=== PATIENT | female | born 1945 | race Caucasian/White ===

== ENCOUNTER → 2016-06-16 | Outpatient (CLI) | payer MEDICARE ==
--- NOTE | 2016-06-17 10:43 | MM ---
Reason for exam: screening (asymptomatic). Last mammogram was performed 6 years ago. History: Patient is postmenopausal. Physical Findings: A clinical breast exam by your physician is recommended on an annual basis and results should be correlated with mammographic findings. MG 3D Screening Mammo W/Cad Bilateral CC and MLO view(s) were taken. Prior study comparison: June 12, 2010, bilateral digital screening mammo w/CAD. July 22, 2007, bilateral mammogram, performed at [facility]. There are scattered fibroglandular densities. No significant changes when compared with prior studies. ASSESSMENT: Negative, BI-RAD 1 RECOMMENDATION: Routine screening mammogram of both breasts in 1 year.
== END ==
LOC: RADMAMWWP 13:40
PROVIDERS: ATTEND Internal Medicine
DX: Z12.31 Encounter for screening mammogram for malignant neoplasm of breast (principal)
CPT/HCPCS: 77063; G0202

== ENCOUNTER → 2016-12-11 | Outpatient (CLI) | payer MEDICARE ==
--- NOTE | 2016-12-11 11:31 | FL ---
EXAMINATION TYPE: FL UGI w esophagus DATE OF EXAM: 12/11/2016 COMPARISON: NONE HISTORY: K44.9 HERNIA WITHOUT OBSTRUCTION OR GANGRENE TECHNIQUE: A double contrast UGI study is performed. FINDINGS: Housing Specialist image of the abdomen shows no gross abnormality. There is a moderate sliding-type hiatal hernia noted which is fixed. There is moderate gastroesophage al reflux noted to the thoracic inlet. I do not see evidence for esophagitis at this time. The stomach shows normal distensibility, peristalsis, and mucosal folds. No evidence of any mass or ulcer disease. No significant gastroesophageal reflux was seen during real time performance of this study. The duodenal bulb, sweep, and proximal small bowel loops are free of ulcer crater. Small duodenal div erticulum noted of its second portion. IMPRESSION: 1. Moderate fixed hiatal hernia with gastroesophageal reflux.
== END | disposition home or self-care (01) ==
LOC: RADFLWHC 10:05
PROVIDERS: ATTEND Internal Medicine
DX: K21.9 Gastro-esophageal reflux disease without esophagitis (principal); K44.9 Diaphragmatic hernia without obstruction or gangrene
CPT/HCPCS: 74240

== ENCOUNTER → 2018-03-29 | Outpatient (CLI) | payer MEDICARE ==
--- NOTE | 2018-03-29 16:34 | MR ---
EXAMINATION TYPE: MR knee RT wo con DATE OF EXAM: 03/29/2018 COMPARISON: None HISTORY: Right knee pain TECHNIQUE: Multiplanar, multisequence imaging of the right knee is performed without IV contrast. FINDINGS: MEDIAL MENISCUS: Medial meniscus is small. Residual meniscus appears intact. LATERAL MENISCUS: There is near complete loss of the lateral meniscus. CRUCIATE LIGAMENTS: Posterior cruciate ligament is intact. The visualized fibers of the anterior cruc iate ligament appear intact and follow a normal course. The insertion on the femur is somewhat more d ifficult to visualize. Prior partial tear is likely present. Complete tears not identified. Correlate with the clinical findings. COLLATERAL LIGAMENTS: Medial and lateral collateral ligaments appear intact EXTENSOR MECHANISM: Visualized quadriceps and patellar tendons are intact. EFFUSION: There is a moderate joint effusion present. POPLITEAL CYST: There is a 1.8 x 1.7 x 3.9 cm popliteal cyst. TRICOMPARTMENT SPACES: There is narrowing of medial lateral compartment joint spaces. There is preser vation of the patellofemoral joint space. CARTILAGE: There is loss of the articular cartilage from the lateral compartment joint space. There i s thinning of the medial compartment joint space articular cartilage. BONE MARROW SIGNAL: Subchondral cyst formation as well as edema is present along the lateral tibial p lateau. Some changes are also noted within the posterior lateral femoral condyle. OTHER: None IMPRESSION: 1. Advanced degenerative joint changes no greatest within the lateral compartment joint space. Severe joint changes are also present within the medial compartment joint space. 2. Thinning of the articular cartilage with subchondral cyst formation especially noted through the l ateral tibial plateau. 3. Loss of the medial lateral menisci little residual remaining. 4. Popliteal cyst.
== END | disposition home or self-care (01) ==
LOC: RADMRIMAIN 08:12
PROVIDERS: ATTEND Internal Medicine
DX: M17.11 Unilateral primary osteoarthritis, right knee (principal); M71.21 Synovial cyst of popliteal space [Baker], right knee; M85.661 Other cyst of bone, right lower leg; M23.300 Other meniscus derangements, unspecified lateral meniscus, right knee; M23.303 Other meniscus derangements, unspecified medial meniscus, right knee

== ENCOUNTER → 2019-01-31 | Outpatient (CLI) | payer MEDICARE ==
[2019-01-31 08:56] VITALS: BP 136/85; PULSE 88; RESP 18; TEMP 97.9
--- NOTE | 2019-01-31 09:57 | P.HPOB ---
History of Present Illness H&P Date: 01/31/19 Chief Complaint: The patient is here for her routine gynecologic exam and ma mmogram. This is a 73-year-old with an LMP of 1997. The patient is here to establish with this office. It has been more than 10 years since her last pelvic exam. She is complaining of some vulvar itching and irritation which has gone on for about 1 year. She states it feels dry. She is not sexually active. She denies vaginal discharge or odor. There is a rough area in the left vulva and she thinks this is where the irritation started. Review of Systems She has lost about 10 pounds over the past year with increased activity. She denies respiratory, cardiac and G.I. problems. She denies maltreatment or problems with falling. : she denies any significant problems with urinary leakage. Past Medical History Past Medical History: GERD/Reflux Additional Past Medical History / Comment(s): hiatal hernia.past RESIDENT CARE MANAGER RN history: She was told she had genital warts years ago. History of Any Multi-Drug Resistant Organisms: None Reported Past Surgical History: Cholecystectomy, Hysterectomy, Orthopedic Surgery Additional Past Surgical History / Comment(s): Vaginal hysterectomy with BSO in 1997. arthroscopic rt knee. Colonoscopy 2019(3rd,next after 5yrs) Past Anesthesia/Blood Transfusion Reactions: No Reported Reaction Past Psychological History: Depression Smoking Status: Former smoker Past Alcohol Use History: Rare Additional Past Alcohol Use History / Comment(s): Quit smoking at approximately age 48. She also quit drinking alcohol at age 48. Past Drug Use History: None Reported Additional History: She is and is not seeing anybody at this time and is not sexually active. She is self-employed as a landlord. - Past Family History Mother Family Medical History: Hypertension Additional Family Medical History / Comment(s): Maternal grandmother and maternal aunt had some type of cancer. Maternal uncle had throat cancer. Daughter(s) Family Medical History: Hypertension, Pulmonary Embolus Brother(s) Family Medical History: Hypertension Medications and Allergies Home Medications Medication Instructions Recorded Confirmed Type Cholecalciferol (Vitamin D3) 2,000 unit PO DAILY 01/31/19 01/31/19 History [Vitamin D3] DULoxetine HCL [Cymbalta] 30 mg PO BID 01/31/19 01/31/19 History Hydrocodone/Acetaminophen [[place] 1 tab PO Q4-6H PRN 01/31/19 01/31/19 History 5-325] Magnesium 200 mg PO DAILY 01/31/19 01/31/19 History Pantoprazole [Protonix] 1 tab PO DAILY 01/31/19 01/31/19 History Phytonadione [Vitamin K] 5 mg PO DAILY 01/31/19 01/31/19 History Potassium 99 mg PO DAILY 01/31/19 01/31/19 History Allergies Allergy/AdvReac Type Severity Reaction Status Date / Time No Known Allergies Allergy Verified 01/31/19 08:56 Exam Vital Signs Temp Pulse Resp BP Pulse Ox 01/31/19 08:50 97.9 F 88 18 136/85 96 Intake and Output 01/30/19 01/31/19 01/31/19 22:59 06:59 14:59 Other: Weight 100.244 kg Height 5 feet 8 inches, weight 221 pounds, BMI 33.6. This is a well-developed well-nourished white female who is alert and oriented times 3 in no acute distress. HEENT: Within normal limits. NECK: Supple without mass or thyromegaly. CHEST AND LUNGS: Clear to auscultation. HEART: Regular rate and rhythm. BREASTS: Are without mass or discharge. AXILLARY EXAM: Negative for adenopathy. BACK: Negative for CVA tenderness. ABDOMEN: Soft, nontender, without palpable masses. PELVIC EXAM: External genitalia reveals moderate atrophy with pallor from approximately the 10:00 to 2 o'clock position of the introitus including the periclitoral area. There is also pallor in the posterior introitus extending to the perineum. There is mild perianal erythema Vagina appears normal with mild to moderate atrophy. There is no evidence of prolapse. Bimanual examination is negative for mass or tenderness. RECTAL EXAM: Rectovaginal exam is negative for mass or tenderness and is negative for occult blood. EXTREMITIES: Nontender. IMPRESSION: 1. 73-year-old menopausal female who is status post vaginal hysterectomy with with BSO done for benign reasons. 2. One year history of vulvar pruritus and irritation with vulvar pallor most consistent with lichen sclerosis. Differential diagnosis will also include chronic hypertrophic vulvitis, vulvar intraepithelial neoplasia, and vulvar malignancy. PLAN: 1. Pap smears have been discontinued. 2. Self breast awareness was discussed with the patient. 3. Screening mammogram will be done today. 4. The patient will be scheduled for vulvar biopsy. 5. She does get flu shots in the fall and did receive one this year. 6.Osteoporosis prevention was discussed. I have stressed the importance of adequate calcium, vitamin D and regular exercise. Recommended amounts of calcium and vitamin D were also discussed. She states she had a bone density test done through Dr. Funk earlier this year and states it came back okay. 7. The patient was advised to return in 1-2 years for her well woman examination.
--- NOTE | 2019-02-01 13:25 | MM ---
Reason for exam: screening (asymptomatic). Last mammogram was performed 2 years and 7 months ago. History: Patient is postmenopausal. Physical Findings: A clinical breast exam by your physician is recommended on an annual basis and results should be correlated with mammographic findings. MG 3D Screening Mammo W/Cad Bilateral CC and MLO view(s) were taken. Prior study comparison: June 16, 2016, bilateral MG 3d screening mammo w/cad. June 12, 2010, bilateral digital screening mammo w/CAD. There are scattered fibroglandular densities. No significant changes when compared with prior studies. ASSESSMENT: Benign, BI-RAD 2 RECOMMENDATION: Routine screening mammogram of both breasts in 1 year.
== END ==
LOC: WWCWWP 08:28
PROVIDERS: ATTEND Obstetrics & Gynecology
DX: Z12.31 Encounter for screening mammogram for malignant neoplasm of breast (principal)
CPT/HCPCS: 77063; 77067

== ENCOUNTER → 2019-02-08 | Day surgery (SDC) | payer MEDICARE ==
[2019-02-08 12:11] VITALS: BP 156/77; PULSE 82; RESP 18; TEMP 97.6
--- NOTE | 2019-02-08 13:27 | P.PCN ---
Date of Procedure: 02/08/19 Preoperative Diagnosis: Chronic vulvar pruritus and vulvar pallor Postoperative Diagnosis: Same with greatest concern at the periclitoral and perineal areas. Procedure(s) Performed: Periclitoral and perineal biopsies. Anesthesia: local Surgeon: Roberto Garcia Estimated Blood Loss (ml): 1 Pathology: other (Periclitoral and perineal biopsies) Condition: stable Disposition: same day Indications for Procedure: This was a 73-year-old menopausal female with a one-year history of vulvar pruritus and irritation. Periclitoral and perineal pallor is noted on exam. Operative Findings: There is moderate genital atrophy noted. There is also mild generalized in flammation of the labia majora bilaterally. The periclitoral area including the clitoral cornejo has moderate pallor and some excoriation consistent with scratch skin. There is minimal pallor in the labia majora. There is moderate pallor in the area of the perineum. The perineal skin is slightly raised. Upon examination the patient was asked to point out the most bothersome area to her and she indicates the perineal area and the area just to the left of it is the most bothersome. She states she has little symptoms and the periclitoral area. Description of Procedure: The procedure including possible risks and complications were reviewed with the patient. All questions were answered. The patient was placed in the lithotomy position and the areas were prepped with Betadine solution. 1% lidocaine was used for local anesthesia. Approximately 1 mL was used in each of the 2 areas. Following determination of adequate anesthesia, a 3 mm punch biopsy was used to biopsy the periclitoral area just to the left of the clitoris. The biopsy specimen was sent for pathological examination as specimen A. A silver nitrate stick was used to obtain hemostasis. The perineal skin which had to moderate pallor was then biopsied after adequate anesthesia was determined. This was biopsied with a cervical biopsy instrument. This was also sent for pathological examination as specimen B. A silver nitrate stick was used to obtain hemostasis. Antibiotic ointment was applied to both biopsy sites. The patient tolerated the procedure well. The estimated blood loss was 1 mL. The post procedure blood pressure was 158/94 with a pulse of 83. The patient was instructed to have limited activity including no running or sexual activity. The patient is to apply Neosporin twice daily to each area until the biopsy sites are healed. The patient was instructed to call if she has unusual pain, problems with bleeding, fever or any other problems.
--- NOTE | 2019-02-14 16:56 | P.PN ---
Progress Note - Text Progress Note Date: 02/14/19 OUTPATIENT FOLLOW-UP NOTE TEST(S)/RESULTS: Vulvar biopsy results from 02/08/2019 came back showing lichen sclerosis from the periclitoral and perineal biopsies. METHOD OF NOTIFICATION: The patient was notified by phone. PATIENT COMMENTS: The patient states she has not had any problems from the biopsy site. DIAGNOSIS: Lichen sclerosis of the vulva most prominent in the periclitoral and perineal areas. DISCUSSION: We had a long discussion regarding the nature of lichen sclerosus and the treatment. She will be prescribed clobetasol 0.05% ointment, 30 g tube, which she will apply a thin layer to the affected areas daily at bedtime 4 weeks, at at bedtime every other day 4 weeks, then 2 times weekly for 4 weeks. On days when she is not applying the prescription ointment, she was advised to use a thin layer of petroleum jelly as a protective barrier layer. She was also advised to use minimal soap to the area. She will start the prescription medication after the biopsy sites have fully healed. She will call if problems. PLAN: As above. The prescription will be sent electronically to [facility] pharmacy on [address]. She will make an appointment in 3 months for reevaluation. A p atient handout on the lichen sclerosus will be mailed to the patient.
== END ==
LOC: WWCWWP 11:57
PROVIDERS: ATTEND Obstetrics & Gynecology
DX: L29.2 Pruritus vulvae (principal)
CPT/HCPCS: 88305

== ENCOUNTER → 2019-12-01 | Outpatient (CLI) | payer MEDICARE ==
--- NOTE | 2019-12-01 16:01 | CT ---
EXAMINATION TYPE: CT chest w con DATE OF EXAM: 12/01/2019 COMPARISON: None HISTORY: Abnormal findings lung field. Nodules per patient. Also shortness of breath with exertion x [address] DLP: 559 mGycm Automated exposure control for dose reduction was used. CONTRAST: CT scan of the chest is performed with IV Contrast, patient injected with 80 mL of Isovue M300. FINDINGS: LUNGS: There are scattered 3 to 4 mm soft tissue nodules present within the bilateral lungs, axial im age 33 in the right upper lobe, axial image 39 medially in the right middle lobe is along the fissure , left upper lobe axial image 12. There is no pleural effusion or pneumothorax seen. The tracheobron chial tree is patent. Bandlike areas of increased attenuation at the lung bases likely reflect scarri ng or atelectasis. MEDIASTINUM: There are no greater than 1 cm hilar or mediastinal lymph nodes. No pericardial effusi on is seen. There are coronary calcifications present. Prominence of pulmonary artery could be indic ative of pulmonary artery hypertension. AORTA: No additional significant abnormality is seen. OTHER: Hiatal hernia with partial intrathoracic stomach is noted. Patient is post cholecystectom. IMPRESSION: Probably benign lung nodules, follow-up could be performed to assess for stability in 6- 12 months. Coronary artery disease. Correlate for pulmonary artery hypertension. Hiatal hernia.
== END | disposition home or self-care (01) ==
LOC: RADCTMAIN 13:23
PROVIDERS: ATTEND Internal Medicine
DX: R91.8 Other nonspecific abnormal finding of lung field (principal); K44.9 Diaphragmatic hernia without obstruction or gangrene
CPT/HCPCS: 82565; 84520; 71260; 36415; Q9967

== ENCOUNTER 2020-03-18 06:44 | Day surgery (SDC) | payer MEDICARE ==
[2020-03-12 13:24] VITALS: BMI 35.9
[~2020-03-18 06:44] MED LIST: ALPRAZolam 0.25 MG TAB PO PRN; ALPRAZolam 0.5 MG TAB PO PRN; ASPIRIN 325 MG TAB PO STA; ATORVASTATIN 80 MG TAB PO STA; HEPARIN SODIUM,PORCINE 10,000 UNIT in SODIUM CHLORIDE 0.9% 1,000 ML IRRIGATION PRN; HEPARIN SODIUM,PORCINE 2,500 UNIT in SODIUM CHLORIDE 0.9% 250 ML IRRIGATION PRN; NITROGLYCERIN SL TABS 0.4 MG TAB SUBLINGUAL PRN; SODIUM CHLORIDE 0.9% 1,000 ML in EMPTY BAG 1 BAG IV ONE
[2020-03-18] MEDS ORDERED: SODIUM CHLORIDE 0.9% 1,000 ML IV SCH ×2 (07:00→09:00)
[2020-03-18] MEDS ORDERED: SODIUM CHLORIDE 0.9% 1,000 ML IV ONE (07:02)
[2020-03-18 07:16] VITALS: RESP 16; TEMP 98.8
[2020-03-18] MEDS ORDERED: LIDOCAINE 1% INJ 10MG/ML (20 ML MDV) ONE (08:20)
[2020-03-18] MEDS ORDERED: VERAPAMIL 2.5 MG/ML 2 ML AMP ONE (08:20)
[2020-03-18] MEDS ORDERED: fentaNYL (PF) 50 MCG/ML 2 ML AMP ONE (08:27)
[2020-03-18] MEDS ORDERED: HEPARIN SODIUM 1,000 UN/ML (10ML VL) ONE (08:36)
[2020-03-18] MEDS ORDERED: MIDAZOLAM 2 MG/2 ML VIAL IVP ONE (08:37)
[2020-03-18] MEDS ORDERED: fentaNYL (PF) 50 MCG/ML 2 ML AMP IVP ONE (08:37)
[2020-03-18] MEDS ORDERED: LIDOCAINE 1% INJ 10MG/ML (20 ML MDV) SQ ONE (08:38)
[2020-03-18] MEDS ORDERED: HEPARIN SODIUM 1,000 UN/ML (10ML VL) IV ONE ×2 (08:42)
[2020-03-18] MEDS: VERAPAMIL SYRINGE (5 MG/10 ML) INTRAARTER ONE ×2 (08:42→08:51)
[2020-03-18] MEDS ORDERED: IOPAMIDOL-370 125ML BTL INJ ONE (08:50)
[2020-03-18] MEDS ORDERED: RX INFO: IV CONTRAST WAS GIVEN 1 EACH MISC MISCELLANE PRN (08:55)
--- NOTE | 2020-03-18 10:19 | CC ---
CARDIAC CATHETERIZATION REPORT DATE OF SERVICE: March 18, 2020. PERFORMING PHYSICIAN: Antonio Lockett MD. PROCEDURE PERFORMED: 1. Selective right and left coronary angiogram. 2. Left heart catheterization. INDICATION: This is a 74-year-old female patient with hypertension and dyslipidemia who was experiencing symptoms of chest discomfort and underwent stress test as well as CT calcium score and both came in to be abnormal. Because of that, a heart catheterization was advised. APPROACH: Right radial artery. COMPLICATION: None. LEVEL OF SEDATION: Moderate with sedation length of 15 minutes. PROCEDURE DESCRIPTION: After obtaining an informed consent, the patient was brought to cardiac biological lab technician. The right radial artery was cannulated using micropuncture technique and a micropuncture wire passed easily then I placed a 5-[place] sheath. I gave the patient 2 mg of verapamil IA and 8000 units of heparin IV. Selective right and left coronary angiogram performed with JR4 and JL3.5 catheters. Left heart catheterization was performed using 5-[place] pigtail catheter. The procedure was completed without any complication. SELECTIVE CORONARY ANGIOGRAM: 1. The RCA is a large caliber vessel and it is a dominant vessel. The RCA has mild disease only and appeared to be calcified. 2. The left main has mild disease only. It bifurcates into LCX and LAD. 3. The LCX is a large caliber vessel it is a nondominant vessel. The LCX has mild disease only as well. It gives rise into the first obtuse marginal branch which appeared to be angiographically normal and second OM which also appeared to be angiographically normal and the circumflex continues after that as a small-caliber vessel in the AV groove. 4. The LAD is a large caliber vessel and appeared to be angiographically normal. It gives rise into a large diagonal branch which seems to be normal. HEMODYNAMICS: The LVEDP appeared to be in the range of 12 mmHg without significant gradient across the aortic valve. CONCLUSION: 1. Calcified right and left coronary systems. 2. Mild disease involving the left main coronary artery. 3. Normal LVEDP. POSTPROCEDURE MANAGEMENT: 1. Medical treatment. 2. Follow up with the patient. MMODL / IJN: [id number] /
[2020-03-18 15:09] VITALS: PULSE 67
[2020-03-18 15:12] VITALS: BP 132/77
== END 2020-03-18 14:01 | disposition home or self-care (01) ==
LOC: CATHCVL 06:44
PROVIDERS: ATTEND Internal Medicine Interventional Cardiology
DX: I25.10 Atherosclerotic heart disease of native coronary artery without angina pectoris (principal); I25.84 Coronary atherosclerosis due to calcified coronary lesion; R94.39 Abnormal result of other cardiovascular function study; R94.8 Abnormal results of function studies of other organs and systems; I10 Essential (primary) hypertension; E78.5 Hyperlipidemia, unspecified; E78.00 Pure hypercholesterolemia, unspecified; Z87.891 Personal history of nicotine dependence; Z88.2 Allergy status to sulfonamides; Z79.82 Long term (current) use of aspirin; Z79.899 Other long term (current) drug therapy
CPT/HCPCS: 93458; C1769 ×2; C1894; J2250; J2001; J3010; J1644; Q9967

== ENCOUNTER → 2020-03-25 | Outpatient (CLI) | payer MEDICARE ==
--- NOTE | 2020-03-26 11:16 | MM ---
Reason for exam: screening (asymptomatic). Last mammogram was performed 1 year and 2 months ago. History: Patient is postmenopausal. Physical Findings: A clinical breast exam by your physician is recommended on an annual basis and results should be correlated with mammographic findings. MG 3D Screening Mammo W/Cad Bilateral CC and MLO view(s) were taken. Prior study comparison: January 31, 2019, bilateral MG 3d screening mammo w/cad. June 16, 2016, bilateral MG 3d screening mammo w/cad. The breast tissue is almost entirely fat. Finding: There are varied sized circumscribed round masses in the upper outer quadrant of the right breast. New finding since January 31, 2019 and June 16, 2016. ASSESSMENT: Incomplete: need additional imaging evaluation, BI-RAD 0 RECOMMENDATION: Ultrasound of the right breast. [facility] will attempt to contact patient to return for ultrasound.
== END | disposition home or self-care (01) ==
LOC: RADMAMWWP 13:48
PROVIDERS: ATTEND Internal Medicine
DX: Z12.31 Encounter for screening mammogram for malignant neoplasm of breast (principal)
CPT/HCPCS: 77063; 77067

== ENCOUNTER → 2020-05-20 | Outpatient (CLI) | payer MEDICARE ==
--- NOTE | 2020-05-20 14:53 | USB ---
Reason for exam: additional evaluation requested from abnormal screening. History: Patient is postmenopausal. Physical Findings: Nurse did not find any significant physical abnormalities on exam. US Breast Workup Limited RT Right limited breast ultrasound including focal area of concern, retroareolar and axilla demonstrates three oval, hypoechoic lesions at 12 o'clock measuring 0.4 x 0.4 x 0.5cm, 0.3 x 0.3 x 0.3cm and 0.3 x 0.4 x 0.4cm. Benign oil cysts. Scanned 9-12 o'clock. These results were verbally communicated with the patient and result sheet given to the patient on 05/20/20. ASSESSMENT: Benign, BI-RAD 2 RECOMMENDATION: Return to routine screening mammogram schedule for both breasts. Back on schedule for March 2021.
== END ==
LOC: RADUSWWP 13:25
PROVIDERS: ATTEND Internal Medicine
DX: N60.01 Solitary cyst of right breast (principal); Z78.0 Asymptomatic menopausal state

== ENCOUNTER → 2020-06-04 | Outpatient (CLI) | payer MEDICARE ==
--- NOTE | 2020-06-04 14:38 | CT ---
EXAMINATION TYPE: CT chest w con DATE OF EXAM: 06/04/2020 COMPARISON: HISTORY: Abnormal findings of lung field CT DLP: 634.6 mGycm, Automated exposure control for dose reduction was used. CONTRAST: Performed injected with 80 mL of Isovue 300. TECHNIQUE: Axial images were obtained at 5 mm thick sections. Reconstructed images are reviewed on [employer] computer in the coronal plane. FINDINGS: Portion of the thyroid visualized is normal. Some subtle subtle peripheral faint nodules may be present on the right. These are stable from compar ping. Left upper posterior lateral nodule is stable from comparison. No suspicious nodules are eviden t. No enlarged mediastinal or hilar adenopathy is evident. The ascending aorta diameter at the level o f the main pulmonary artery is 3.4 cm. The main pulmonary artery diameter at the bifurcation is 2.7 cm. Moderate size hiatal hernia is present. Limited CT sections are obtained through the upper abdomen. Abdomen is essentially unremarkable. IMPRESSIONS: 1. Moderate size hiatal hernia. 2. Faint lung nodules previously identified are stable. 3. Follow-up CT chest and one year to confirm stability is recommended.
== END | disposition home or self-care (01) ==
LOC: RADCTMAIN 10:11
PROVIDERS: ATTEND Internal Medicine
DX: K44.9 Diaphragmatic hernia without obstruction or gangrene (principal); R91.8 Other nonspecific abnormal finding of lung field
CPT/HCPCS: 82565; 84520; 71260; 36415; Q9967

== ENCOUNTER 2020-11-03 16:59 | Emergency (ER) | payer MEDICARE ==
[2020-11-03] MEDS ORDERED: MORPHINE SULFATE 2 MG/ML SYRINGE IVP STA (17:14)
[2020-11-03] MEDS ORDERED: SODIUM CHLORIDE 0.9% 1,000 ML IV STA (17:14)
[2020-11-03] MEDS ORDERED: ONDANSETRON 4 MG/2 ML VIAL IVP STA (17:14)
[2020-11-03 17:48] LABS: Anisocytosis Slight; Appearance,Urine Clear (Clear); Basophils # (A) 0.1 k/uL (0-0.2); Basophils % (A) 0 %; Bilirubin,Urine Negative (Negative); Blood,Urine Negative (Negative); Color,Urine Yellow; Eosinophils # (A) 0.3 k/uL (0-0.7); Eosinophils % (A) 3 %; Glucose,Urine (UA) Negative (Negative); HCT 41.8 % (34.0-46.0); Hypochromasia Moderate; Ketones,Urine Negative (Negative); Leukocyte Esterase,Urine Negative (Negative); Lymphocytes # (A) 1.3 k/uL (1.0-4.8); Lymphocytes % (A) 12 %; MCH 25.3 pg (25.0-35.0); MCHC 31.2 g/dL (31.0-37.0); MCV 81.1 fL (80.0-100.0); Mean Platelet Volume 7.5; Monocytes % (A) 9 %; Neutrophils # (A) 8.3 k/uL (1.3-7.7); Neutrophils % (A) 74 %; Nitrite,Urine Negative (Negative); PH, Urine 5.5 (5.0-8.0); Platelet Count 203 k/uL (150-450); Protein,Urine Negative (Negative); RBC 5.16 m/uL (3.80-5.40); RDW 16.2 % (11.5-15.5); Specific Gravity,Urine 1.027 (1.001-1.035); Urobilinogen,Urine <2.0 mg/dL (<2.0); WBC 11.2 k/uL (3.8-10.6)
[2020-11-03 17:59] LABS: Albumin 3.7 g/dL (3.5-5.0); Calcium 9.1 mg/dL (8.4-10.2); Potassium 4.5 mmol/L (3.5-5.1); Total Bilirubin 0.4 mg/dL (0.2-1.3); Total Protein 6.2 g/dL (6.3-8.2)
--- NOTE | 2020-11-03 18:48 | CT ---
EXAMINATION TYPE: CT abdomen pelvis wo con DATE OF EXAM: 11/03/2020 COMPARISON: 03/25/2015 HISTORY: Suprapubic pain. CT DLP: 1503.4 mGycm Automated exposure control for dose reduction was used. There is some patchy atelectasis at the lung bases bilaterally. There is no pleural effusion. Heart s ize is fairly normal. There is no pericardial effusion. There is moderate-sized hiatal hernia. Liver and spleen are intact. The bile ducts are not dilated. T here is no pancreatic mass. There are numerous clips from cholecystectomy. Pancreas has normal size. There is no adrenal mass. Kidneys have normal size. There are left side renal parapelvic cysts. Ureters are not dilated. There is no retroperitoneal adenopathy. Bladder distends smoothly. There is extensive colonic diverticulosi s. There is no inguinal hernia. There is no free fluid in the pelvis. Appendix is not seen. There is no sign of thickened appendix. There is no pelvic mass. There is no mesenteric edema. There is no ascites or free air. There is no e vidence of bowel obstruction. The lumbar vertebra have fairly normal alignment. There is no compression fracture. The bony pelvis i s intact. The hip joints are intact. There is some spurring in the hip joints. Abdominal aorta is ath eromatous. IMPRESSION: Extensive colonic diverticulosis without diverticulitis. Diverticula mostly concentrated in the sigmo id colon. This appears not significantly different than old exam. There is increased patchy atelectasis at the lung bases compared to old exam.
--- NOTE | 2020-11-03 19:27 | ED ---
Abdominal Pain HPI - General Chief Complaint: Abdominal Pain Stated Complaint: Abd pain Time Seen by Provider: 11/03/20 17:11 Source: patient, RN notes reviewed Mode of arrival: wheelchair Limitations: no limitations - History of Present Illness Initial Comments: Patient is a 75-year-old female that presents to the emergency department complaining of lower abdominal cramping and pain on and off for the past several months. She notes it is been worse over the last 2 weeks. She notes that she went to her primary care and GI specialist to get her antibiotics for a possible early diverticulitis. Patient notes that she's had several colonoscopies by her GI specialist which is how she found out she had diverticulosis. Patient states that her at home pain medication has not helped. She was unable to confirm if it was dietary related to the pain. She was otherwise a well-appearing 75-year-old female. She denied any chest pain shortness of breath headache nausea vomiting diarrhea constipation fever fatigue chills. - Related Data Home Medications Medication Instructions Recorded Confirmed Cholecalciferol (Vitamin D3) 2,000 unit PO DAILY 01/31/19 03/18/20 [Vitamin D3] DULoxetine HCL [Cymbalta] 30 mg PO BID 01/31/19 03/18/20 Hydrocodone/Acetaminophen [[place] 1 tab PO BID 01/31/19 03/18/20 5-325] Magnesium 200 mg PO DAILY 01/31/19 03/18/20 Potassium 99 mg PO DAILY 01/31/19 03/18/20 Atorvastatin Calcium [Lipitor] 40 mg PO DAILY 03/12/20 03/18/20 Clobetasol Propionate [Temovate 1 applic TOPICAL DIRECTED 03/12/20 03/18/20 0.05% Oint] Metoprolol Succinate (ER) [Toprol 25 mg PO DAILY 03/12/20 03/18/20 XL] Omeprazole 20 mg PO DAILY 03/12/20 03/18/20 Ubidecarenone [Co Q-10] 100 mg PO DAILY 03/12/20 03/18/20 Previous Rx's Medication Instructions Recorded Dicyclomine [Bentyl] 20 mg PO TID #30 tablet 11/03/20 Allergies Allergy/AdvReac Type Severity Reaction Status Date / Time sulfamethoxazole AdvReac Unknown Verified 11/03/20 17:05 [From Bactrim] trimethoprim [From Bactrim] AdvReac Unknown Verified 11/03/20 17:05 Review of Systems ROS Statement: Those systems with pertinent positive or pertinent negative responses have been documented in the HPI. ROS Other: All systems not noted in ROS Statement are negative. Past Medical History Past Medical History: Asthma, GERD/Reflux, Hyperlipidemia Additional Past Medical History / Comment(s): hiatal hernia. hx genital warts years ago. History of Any Multi-Drug Resistant Organisms: None Reported Past Surgical History: Cholecystectomy, Hysterectomy, Orthopedic Surgery Additional Past Surgical History / Comment(s): Vaginal hysterectomy with BSO in 1997. arthroscopic rt knee. Colonoscopy 2019(3rd,next after 5yrs), hiatal hernia Past Anesthesia/Blood Transfusion Reactions: No Reported Reaction Additional Past Anesthesia/Blood Transfusion Reaction / Comment(s): "very sore throat after anesthesia" Past Psychological History: Depression Smoking Status: Former smoker Past Alcohol Use History: None Reported Past Drug Use History: None Reported - Past Family History Brother(s) Family Medical History: Hypertension Mother Family Medical History: Hypertension Additional Family Medical History / Comment(s): Maternal grandmother and maternal aunt had some type of cancer. Maternal uncle had throat cancer. Daughter(s) Family Medical History: Hypertension, Pulmonary Embolus General Exam Limitations: no limitations General appearance: obese Head exam: Present: atraumatic, normocephalic, normal inspection Eye exam: Present: normal appearance, PERRL, EOMI. Absent: scleral icterus, conjunctival injection, periorbital swelling Neck exam: Present: normal inspection Respiratory exam: Present: normal lung sounds bilaterally. Absent: respiratory distress, wheezes, rales, rhonchi, stridor Cardiovascular Exam: Present: regular rate, normal rhythm, normal heart sounds. Absent: systolic murmur, diastolic murmur, rubs, gallop, clicks GI/Abdominal exam: Present: soft, tenderness (Bilaterally across the lower abdom en.), normal bowel sounds. Absent: distended, guarding, rebound, rigid Extremities exam: Present: normal inspection, full ROM, normal capillary refill. Absent: tenderness, pedal edema, joint swelling, calf tenderness Neurological exam: Present: alert, oriented X3 Psychiatric exam: Present: normal affect, normal mood Skin exam: Present: warm, dry, intact, normal color. Absent: rash Course Vital Signs 11/03/20 11/03/20 16:59 18:54 Temperature 97.8 F Pulse Rate 79 71 Respiratory 18 20 Rate Blood Pressure 139/68 113/62 O2 Sat by Pulse 96 96 Oximetry Medical Decision Making - Medical Decision Making 75-year-old female complaining of lower abdominal pain on and off for the past several months worse the last 2 weeks. Labs, 1 L normal saline, 2 mg of morphine, 4 mg Zofran, CT of the abdomen and pelvis ordered. Labs unremarkable. Mild leukocytosis at 11.2 CT shows extensive diverticulosis without diverticulitis. Case discussed with Dr. Fox, patient can follow-up with GI specialist and/or Dr. Samaniego Patient will be discharged home in stable condition with Bentyl sent to her pharmacy for GI discomfort and spasms. - Lab Data Result diagrams: 11/03/20 17:31 11/03/20 17:31 Lab Results 11/03/20 11/03/20 11/03/20 Range/Units 17:31 17:31 17:31 WBC 11.2 H (3.8-10.6) k/uL RBC 5.16 (3.80-5.40) m/uL Hgb 13.0 (11.4-16.0) gm/dL Hct 41.8 (34.0-46.0) % MCV 81.1 (80.0-100.0) fL MCH 25.3 (25.0-35.0) pg MCHC 31.2 (31.0-37.0) g/dL RDW 16.2 H (11.5-15.5) % Plt Count 203 (150-450) k/uL MPV 7.5 Neutrophils % 74 % Lymphocytes % 12 % Monocytes % 9 % Eosinophils % 3 % Basophils % 0 % Neutrophils # 8.3 H (1.3-7.7) k/uL Lymphocytes # 1.3 (1.0-4.8) k/uL Monocytes # 1.0 (0-1.0) k/uL Eosinophils # 0.3 (0-0.7) k/uL Basophils # 0.1 (0-0.2) k/uL Hypochromasia Moderate Anisocytosis Slight Sodium 135 L (137-145) mmol/L Potassium 4.5 (3.5-5.1) mmol/L Chloride 103 (98-107) mmol/L Carbon Dioxide 23 (22-30) mmol/L Anion Gap 9 mmol/L BUN 13 (7-17) mg/dL Creatinine 0.79 (0.52-1.04) mg/dL Est GFR (CKD-EPI)AfAm 86 (>60 ml/min/1.73 sqM) Est GFR (CKD-EPI)NonAf 75 (>60 ml/min/1.73 sqM) Glucose 97 (74-99) mg/dL Plasma Lactic Acid Bucky (0.7-2.0) mmol/L Calcium 9.1 (8.4-10.2) mg/dL Total Bilirubin 0.4 (0.2-1.3) mg/dL AST 23 (14-36) U/L ALT 11 (4-34) U/L Alkaline Phosphatase 75 (38-126) U/L Total Protein 6.2 L (6.3-8.2) g/dL Albumin 3.7 (3.5-5.0) g/dL Amylase 40 (30-110) U/L Lipase 87 (23-300) U/L Urine Color Yellow Urine Appearance Clear (Clear) Urine pH 5.5 (5.0-8.0) Ur Specific [place] 1.027 (1.001-1.035) Urine Protein Negative (Negative) Urine Glucose (UA) Negative (Negative) Urine Ketones Negative (Negative) Urine Blood Negative (Negative) Urine Nitrite Negative (Negative) Urine Bilirubin Negative (Negative) Urine Urobilinogen <2.0 (<2.0) mg/dL Ur Leukocyte Esterase Negative (Negative) 11/03/20 Range/Units 17:46 WBC (3.8-10.6) k/uL RBC (3.80-5.40) m/uL Hgb (11.4-16.0) gm/dL Hct (34.0-46.0) % MCV (80.0-100.0) fL MCH (25.0-35.0) pg MCHC (31.0-37.0) g/dL RDW (11.5-15.5) % Plt Count (150-450) k/uL MPV Neutrophils % % Lymphocytes % % Monocytes % % Eosinophils % % Basophils % % Neutrophils # (1.3-7.7) k/uL Lymphocytes # (1.0-4.8) k/uL Monocytes # (0-1.0) k/uL Eosinophils # (0-0.7) k/uL Basophils # (0-0.2) k/uL Hypochromasia Anisocytosis Sodium (137-145) mmol/L Potassium (3.5-5.1) mmol/L Chloride (98-107) mmol/L Carbon Dioxide (22-30) mmol/L Anion Gap mmol/L BUN (7-17) mg/dL Creatinine (0.52-1.04) mg/dL Est GFR (CKD-EPI)AfAm (>60 ml/min/1.73 sqM) Est GFR (CKD-EPI)NonAf (>60 ml/min/1.73 sqM) Glucose (74-99) mg/dL Plasma Lactic Acid Bucky 1.7 (0.7-2.0) mmol/L Calcium (8.4-10.2) mg/dL Total Bilirubin (0.2-1.3) mg/dL AST (14-36) U/L ALT (4-34) U/L Alkaline Phosphatase (38-126) U/L Total Protein (6.3-8.2) g/dL Albumin (3.5-5.0) g/dL Amylase (30-110) U/L Lipase (23-300) U/L Urine Color Urine Appearance (Clear) Urine pH (5.0-8.0) Ur Specific [place] (1.001-1.035) Urine Protein (Negative) Urine Glucose (UA) (Negative) Urine Ketones (Negative) Urine Blood (Negative) Urine Nitrite (Negative) Urine Bilirubin (Negative) Urine Urobilinogen (<2.0) mg/dL Ur Leukocyte Esterase (Negative) Disposition Clinical Impression: Abdominal pain, Diverticulosis Disposition: HOME SELF-CARE Condition: Stable Instructions (If sedation given, give patient instructions): Abdominal Pain (ED) Additional Instructions: Please return to the Emergency Department if symptoms worsen or any other concerns. Follow-up with primary care 1-2 days. Follow-up with GI specialists as soon as possible. Follow-up with Dr. Samaniego when feasible. Prescriptions: Dicyclomine [Bentyl] 20 mg PO TID #30 tablet Is patient prescribed a controlled substance at d/c from ED?: No Referrals: Carley Garibay MD [Primary Care Provider] - 1-2 days Shawn Samaniego MD [STAFF PHYSICIAN] - 1-2 days Time of Disposition: 19:26
[2020-11-03 20:03] VITALS: BP 133/73; PULSE 66; RESP 18; TEMP 98.1
== END 2020-11-03 19:50 | disposition home or self-care (01) ==
LOC: EC 16:59
DX: K57.30 Diverticulosis of large intestine without perforation or abscess without bleeding (principal); D72.829 Elevated white blood cell count, unspecified; E78.5 Hyperlipidemia, unspecified; J45.909 Unspecified asthma, uncomplicated; K21.9 Gastro-esophageal reflux disease without esophagitis; Z87.891 Personal history of nicotine dependence; Z88.2 Allergy status to sulfonamides; Z90.49 Acquired absence of other specified parts of digestive tract; Z79.899 Other long term (current) drug therapy
CPT/HCPCS: 36415; 80053; 82150; 83605; 83690; 85025; 81003; 74176; 99284; 96374; 96361; 96375; J2405; J2270

== ENCOUNTER → 2020-11-20 | Outpatient (CLI) | payer MEDICARE ==
[2020-11-20 11:45] VITALS: BP 115/73; PULSE 71; RESP 18; TEMP 98.1
--- NOTE | 2020-11-20 13:08 | P.HPOB ---
History of Present Illness H&P Date: 11/20/20 Chief Complaint: Low abdominal pain for 1 month This is a 75-year-old with an LMP of 1997. The patient is status post vaginal hysterectomy and BSO for benign reasons in 1997. The patient states she developed low abdominal pain about 1 month ago. She states she was having some issues with constipation and took a laxative about 1 month ago and this led to loose stools and diarrhea. States she has had loose stools and diarrhea 2-3 times a day since then. She says she only took the laxative once about 1 month ago. The low abdominal pains seem to be on one side or the other but seems to shoot across to the other side. She describes them as sharp pains and int ermittent. It seems to be more noticeable when she passes gas and seems to improve after moving her bowels. She occasionally has felt slightly nauseous, but has not had vomiting. Her initial constipation seem to be associated with a change in her diet. She was trying to lose weight and put herself on a low carb diet when she started having the bowel issues. CT scan done on 11/03/2020 showed no pelvic mass and showed diverticulosis without signs of diverticulitis. She has a history of lichen sclerosus of the vulva. She has been using and ointment as prescribed by her PCP. She previously used Temovate ointment that I had prescribed 2 years ago and she believes the ointment she has been using is the same. She only uses it periodically when there is a flareup. She tends to have a small amount of blood from the vulva when there is a flareup. At the time the flareup she notices itching. Review of Systems She denies respiratory or cardiac problems. GI: She has had loose stools with diarrhea 2-3 times per day for the last month. This followed constipation as in the HPI. She has had infrequent nausea with no emesis. : Vulvar symptoms as in the HPI. She denies dysuria, urinary frequency or urinary urgency. She tends to void infrequently. Past Medical History Past Medical History: Asthma, GERD/Reflux, Hyperlipidemia Additional Past Medical History / Comment(s): hiatal hernia. Past [employer] history: Lichen sclerosus of the vulva. hx genital warts years ago. History of Any Multi-Drug Resistant Organisms: None Reported Past Surgical History: Cholecystectomy, Hysterectomy, Orthopedic Surgery Additional Past Surgical History / Comment(s): Vaginal hysterectomy with BSO in 1997. arthroscopic rt knee. Colonoscopy 2019(3rd,next after 5yrs), hiatal hernia Past Anesthesia/Blood Transfusion Reactions: No Reported Reaction Additional Past Anesthesia/Blood Transfusion Reaction / Comment(s): "very sore throat after anesthesia" Past Psychological History: Depression Smoking Status: Former smoker Past Alcohol Use History: None Reported Additional Past Alcohol Use History / Comment(s): Quit smoking at approximately age 48. She also quit drinking alcohol at age 48. Past Drug Use History: None Reported - Past Family History Brother(s) Family Medical History: Hypertension Mother Family Medical History: Hypertension Additional Family Medical History / Comment(s): Maternal grandmother and maternal aunt had some type of cancer. Maternal uncle had throat cancer. Daughter(s) Family Medical History: Hypertension, Pulmonary Embolus Medications and Allergies Home Medications Medication Instructions Recorded Confirmed Type Cholecalciferol (Vitamin D3) 5,000 unit PO DAILY 01/31/19 11/20/20 History [Vitamin D3] DULoxetine HCL [Cymbalta] 30 mg PO BID 01/31/19 11/20/20 History Magnesium 200 mg PO DAILY 01/31/19 11/20/20 History Potassium 99 mg PO DAILY 01/31/19 11/20/20 History Metoprolol Succinate (ER) [Toprol 25 mg PO DAILY 03/12/20 11/20/20 History XL] Omeprazole 20 mg PO DAILY 03/12/20 11/20/20 History Ubidecarenone [Co Q-10] 100 mg PO DAILY 03/12/20 11/20/20 History Dicyclomine [Bentyl] 20 mg PO TID #30 tablet 11/03/20 11/20/20 Rx Calcium Citrate/Vitamin D3 1 each PO DAILY 11/20/20 11/20/20 History [Citracal + D Maximum Caplet] Allergies Allergy/AdvReac Type Severity Reaction Status Date / Time sulfamethoxazole AdvReac Unknown Verified 11/20/20 11:48 [From Bactrim] trimethoprim [From Bactrim] AdvReac Unknown Verified 11/20/20 11:48 Exam Vital Signs Temp Pulse Resp BP Pulse Ox 11/20/20 11:34 98.1 F 71 18 115/73 94 L Intake and Output 11/19/20 11/20/20 11/20/20 22:59 06:59 14:59 Other: Weight 105.233 kg Height 5 feet 6-1/2 inches, weight 232 pounds, BMI 36.9. This is a well-developed well-nourished white female who is alert and oriented 3 in no acute distress. Abdomen: Abdomen is soft with minimal right lower quadrant tenderness without rebound tenderness. There are no palpable abdominal masses. The abdomen does not seem distended. There are 1+ bowel sounds. Pelvic exam: External genitalia reveals moderate to severe atrophy. The labia minora reveals mild excoriation in there is minimal pallor on the inner aspects of the labia majora and labia minora. The vaginal opening is small and very atrophic. Vagina reveals moderate atrophy without lesions. Vagina is well supported without evidence of prolapse. Bimanual examination is negative for mass or tenderness. Impression: 1. 75-year-old menopausal female who is status post vaginal hysterectomy and BSO for benign reasons, with 1 month history of low abdominal pains. There is minimal lower abdominal tenderness at this time. I do not feel the pains she has been experiencing is gynecologic in nature. Her symptoms seem to indicate a GI cause for her abdominal pains. 2. Lichen sclerosus of the vulva with moderate to severe atrophy. Plan: 1. She will follow up with her primary care physician for her low abdominal pains. 2. She will use Estrace vaginal cream 1 g into the vagina every other day for 1 week, then 2 times weekly. The electronic prescription will be sent to [facility] pharmacy on [facility]. 3. She will also use Temovate 0.05% ointment twice a day as needed for vulvar irritation. She will call to confirm that this is what she has been using from her PCP. 4. She will return in March 2021 for her well woman examination and mammogram and as needed. Total time spent with the patient :35 minutes.
== END | disposition home or self-care (01) ==
LOC: WWCWWP 11:20
PROVIDERS: ATTEND Obstetrics & Gynecology
DX: Z53.9 Procedure and treatment not carried out, unspecified reason (principal)

== ENCOUNTER → 2021-05-23 | Outpatient (CLI) | payer MEDICARE | END | disposition home or self-care (01) | LOC: RADMAMWWP 14:52 | PROVIDERS: ATTEND Family Medicine | DX: Z12.39 Encounter for other screening for malignant neoplasm of breast (principal) | CPT/HCPCS: 77063; 77067 ==

== ENCOUNTER → 2024-06-26 | Outpatient (CLI) | payer MEDICARE ==
--- NOTE | 2024-06-26 11:41 | FL ---
EXAMINATION TYPE: FL barium swallow DATE OF EXAM: 06/26/2024 11:17 AM COMPARISON: None. CLINICAL INDICATION: Female, 79 years old with history of R13.10 DYSPHAGIA, Dysphagia TECHNIQUE: Esophagram was performed per the air contrast technique. The patient swallowed barium and effervescent crystals without difficulty or delay. FINDINGS: Esophageal peristalsis and motility appear to be within normal limits. There is no evidence for filling defect, mass or diverticulum. Moderate sliding-type hiatal hernia is noted. Subsequently single contrast cervical esophagram was performed which fails demonstrate evidence for a spiration penetration or mass. IMPRESSION: Moderate sliding-type hiatal hernia is noted. [facility], , 06/26/2024 11:39 AM
== END | disposition home or self-care (01) ==
LOC: RADFLMAIN 10:07
PROVIDERS: ATTEND Student in an Organized Health Care Education/Training Program
DX: K44.9 Diaphragmatic hernia without obstruction or gangrene (principal); R13.10 Dysphagia, unspecified
CPT/HCPCS: 74220